=== PATIENT | male | born 1980 | race Caucasian/White ===

== ENCOUNTER 2018-03-18 21:25 | Emergency (ER) | payer OTHER ==
[2018-03-18] MEDS: LIDOCAINE 2%/EPI MPF (SDV) 20 ML VIAL INJ (23:38)
[2018-03-18] MEDS: DIPHTH/TET/ACEL PERTUSS (ADULT) 0.5 ML VIAL IM (23:46)
== END 2018-03-19 00:46 | disposition home or self-care (01) ==
LOC: FTE 03-19 00:46
DX: S51.812A Laceration without foreign body of left forearm, initial encounter (principal); F17.210 Nicotine dependence, cigarettes, uncomplicated; W26.8XXA Contact with other sharp object(s), not elsewhere classified, initial encounter; Y92.89 Other specified places as the place of occurrence of the external cause; Z23 Encounter for immunization
CPT/HCPCS: 12001; 90471; 90715; 99283-25